=== PATIENT | female | born 1970 | race Hispanic/Latino ===

== ENCOUNTER 2021-08-06 12:44 | Outpatient (CLI) | payer BC ==
[2021-08-06 14:23] LABS: Blood Urea Nitrogen 17 mg/dL (7-17)
--- NOTE | 2021-08-06 17:01 | Cat Scan Report ---
CT ABDOMEN WITH/WITHOUT CONTRAST INDICATION / CLINICAL INFORMATION: Abdominal pain. TECHNIQUE: Axial CT images were obtained through the abdomen with and without 100 cc of Omnipaque [address] scans at this location are performed using CT dose reduction for ALARA by means of automated exposure control. COMPARISON: None available. FINDINGS: LOWER CHEST: No significant abnormality LIVER: No significant abnormality. Unenlarged. GALLBLADDER/BILIARY TREE: No significant abnormality PANCREAS: No significant abnormality SPLEEN: No significant abnormality. Unenlarged. ADRENALS: No significant abnormality KIDNEYS / URETER: Right renal cyst and tiny left renal hypodensity which is too small to further jung acterize, though also likely reflects a cyst. There are at least 2 punctate nonobstructive stones in the right kidney. No evidence of hydronephrosis. STOMACH / SMALL BOWEL: Stomach and small bowel are normal in caliber. No evidence of bowel inflammati on. COLON: No significant abnormality LYMPH NODES: No significant adenopathy. VASCULATURE: No significant abnormality. OTHER: No free air, free fluid, or focal fluid collection is identified. SKELETAL SYSTEM: No acute osseous findings. IMPRESSION: 1. No acute abnormality of the abdomen. 2. Tiny nonobstructive right renal calculi. No evidence of hydronephrosis. 3. Other incidental findings as above. Signer Name: Bridger Bertrand MD Signed: 08/06/2021 4:56 PM Workstation Name: [id number]
== END 2021-08-06 12:45 | disposition home or self-care (01) ==
LOC: CT 12:44
PROVIDERS: ATTEND Family Medicine
DX: N20.0 Calculus of kidney (principal); N28.1 Cyst of kidney, acquired
CPT/HCPCS: 36415; 74170; 82565; 84520; Q9967